=== PATIENT | female | born 1960 | race Caucasian/White ===

== ENCOUNTER 2017-11-20 13:31 | Emergency (ER) | payer OTHER ==
[2017-11-20 13:59] VITALS: BP 140/67; PULSE 89; TEMP 98.6; BMI 23.0
--- NOTE | 2017-11-20 14:25 | PDOC ---
History of Present Illness - General Chief Complaint: Chest Pain Stated Complaint: Nausea Time Seen by Provider: 11/20/17 14:22 - History of Present Illness Initial Comments: 11/20/17 14:23 57 yo F with h/o thyroid ca. s/p resection, hypothyroidism, anxiety, panic attacks, who p/w dizziness. Patient with acute worsening of "spinning sensation " at rest and with movement beginning last night. Symptom onset 2 months ago. Also reports transient episode of lightheadedness, BL tinnitus, and L ear pain. Denies hearing loss. Patient seen by neurology, with negative CTH x 1 week ago. Denies OTC symptom management. Patient denies N/V, F,C, CP, SOB, urinary complaints, abdominal pain, diarrhea, constipation, weakness, sensory changes. PMHx: as noted above. Denies h/o CVA/TIA, PE/DVT. ROS: as noted SHx: Tobacco cessation x 3 years ago. Denies Etoh,IVDA. Allergies: NKDA Past History - Past Medical History Allergies/Adverse Reactions: Allergies Allergy/AdvReac Type Severity Reaction Status Date / Time No Known Drug Allergies Allergy Verified 11/20/17 13:56 Home Medications: Ambulatory Orders Alprazolam [Xanax] 1 mg PO TID 06/30/11 Zolpidem Tartrate [Ambien] 12.5 mg PO HS 06/30/11 Levothyroxine [Synthroid -] 175 mcg PO DAILY 01/26/12 Diphenhydramine [Benadryl *Liquid*] 25 mg PO QID PRN #1 bottle 02/28/16 Loratadine [Claritin -] 10 mg PO DAILY #7 tablet 02/28/16 Meclizine HCl [Antivert -] 12.5 mg PO TID PRN #21 tablet 11/20/17 Anemia: No Asthma: No Cancer: Yes (THYROID) Cardiac Disorders: No CVA: No COPD: No CHF: No Dementia: No Diabetes: No GI Disorders: Yes Disorders: No HTN: No Hypercholesterolemia: No Liver Disease: No Psychiatric Problems: Yes (ANXIETY) Seizures: Yes Thyroid Disease: Yes (CANCER) - Surgical History Abdominal Surgery: No Appendectomy: No Cardiac Surgery: No Cholecystectomy: Yes Lung Surgery: No Neurologic Surgery: No Orthopedic Surgery: No - Reproductive History (#): 1 Para: 1 - Immunization History Immunization Up to Date: Yes - Suicide/Smoking/Psychosocial Hx Smoking Status: No Smoking History: Never smoked Have you smoked in the past 12 months: No Number of Cigarettes Smoked Daily: 0 If you are a former smoker, when did you quit?: 1969 Information on smoking cessation initiated: No Hx Alcohol Use: No Drug/Substance Use Hx: No Substance Use Type: None Hx Substance Use Treatment: No Review of Systems - Review of Systems Comments:: 11/20/17 14:24 GENERAL/CONSTITUTIONAL: No fever or chills. No weakness. HEAD, EYES, EARS, NOSE AND THROAT: + Left ear pain and tinnitus. No discharge. No change in vision. No sore throat. CARDIOVASCULAR: No chest pain or shortness of breath RESPIRATORY: No cough, wheezing, or hemoptysis. GASTROINTESTINAL: No nausea, vomiting, diarrhea or constipation. GENITOURINARY: No dysuria, frequency, or change in urination. MUSCULOSKELETAL: No joint or muscle swelling or pain. No neck or back pain. SKIN: No rash NEUROLOGIC: + Lightheadedness. No headache, vertigo, loss of consciousness, or change in strength/sensation. ENDOCRINE: No increased thirst. No abnormal weight change HEMATOLOGIC/LYMPHATIC: No anemia, easy bleeding, or history of blood clots. ALLERGIC/IMMUNOLOGIC: No hives or skin allergy. *Physical Exam - Vital Signs Last Vital Signs Temp Pulse Resp BP Pulse Ox 98.6 F 89 16 140/67 100 11/20/17 13:56 11/20/17 13:56 11/20/17 13:56 11/20/17 13:56 11/20/17 13:56 - Physical Exam Comments: 11/20/17 14:24 GENERAL: Awake, alert, and fully oriented, in no acute distress HEAD: No signs of trauma, normocephalic, atraumatic EYES: PERRLA, EOMI, sclera anicteric, conjunctiva clear ENT: Auricles normal inspection, hearing grossly normal, nares patent, oropharynx clear without exudates. Moist mucosa NECK: Normal ROM, supple, no lymphadenopathy, JVD, or masses LUNGS: No distress, speaks full sentences, clear to auscultation bilaterally HEART: Regular rate and rhythm, normal S1 and S2, no murmurs, rubs or gallops, peripheral pulses normal and equal bilaterally. EXTREMITIES : Normal inspection, Normal range of motion, no edema. No clubbing or cyanosis. NEUROLOGICAL: Absent Nystagmus on physical exam. Cranial nerves II through XII grossly intact. Normal speech, normal gait, no focal sensorimotor deficits. Neg dysmetria on FTN. Normal TONE. SKIN: Warm, Dry, normal turgor, no rashes or lesions noted ED Treatment Course - LABORATORY CBC & Chemistry Diagram: 11/20/17 16:00 11/20/17 16:00 Medical Decision Making - Medical Decision Making 11/20/17 14:25 57 yo F with h/o thyroid ca. s/p resection, hypothyroidism, anxiety, panic attacks, who p/w dizziness. VSS, AF. Likely vertigo peripheral vs. central. Absent nystagmus. Low suspicion CVA/TIA. Will consider BPPV, AOM, labrynthitis, Menieres dz. Neurologist Daniella. 11/20/17 14:27 ED Course: EKG: NSR with absent AL, STD. Normal interval duration and axis. 11/20/17 15:17 Spoke to medical receptionist medical assistant at Dr. Brewer office ([phone]). Patient had an EEG and MRI brain (10/2017). *DC/Admit/Observation/Transfer Diagnosis at time of Disposition: Vertigo - Discharge Dispostion Disposition: HOME Condition at time of disposition: Stable Decision to Admit order: No - Referrals Referrals: Maria T Astudillo MD [Primary Care Provider] - - Patient Instructions Printed Discharge Instructions: DI for Vertigo Additional Instructions: Please return to the emergency department with any new or worsening symptoms or concerns. Please follow up with your primary care physician within 72 hours. Take Meclizine as needed for vertigo. Can follow up with neurology for vertigo. - Post Discharge Activity - Attestations Physician Attestion: 11/20/17 17:12 I attest to the information provided in this note.
--- NOTE | 2017-11-20 14:26 | PDOC ---
Attending Attestation - Resident Resident Name: Patric Solorzano - ED Attending Attestation I have performed the following: I have examined & evaluated the patient, The case was reviewed & discussed with the resident, I agree w/resident's findings & plan, Exceptions are as noted - HPI HPI: 11/20/17 14:53 57 year old female pmh thyroid cancer s/p resection, anxiety, hypothyroidism, p/ w dizziness x 3 months. Pt reports a "spinning sensation" last night associated with lightheaded and bilateral tinitus and left ear pain. Denies hearing loss. Does not take aspirin. Has been seeing her neurologist, Dr. Brewer and had an MRI scan of her head, and an EEG that was negative (confirmed by Dr. Brewer's office) Pt does not currently taking any medications for this. States that these symptoms are intermittent x 2 months. Worse with movements and turning head. Denies prior strokes or clotting disorders. Denies chest pain (despite nursing triage comment) here. The patient experienced another episode last night so came into the ED. - Physicial Exam PE: 11/20/17 17:18 GENERAL: Awake, alert, and fully oriented, in no acute distress HEAD: No signs of trauma EYES: PERRLA, EOMI, sclera anicteric, conjunctiva clear ENT: Auricles normal inspection, hearing grossly normal, nares patent NECK: Normal ROM, supple LUNGS: Breath sounds equal, clear to auscultation bilaterally. No wheezes, and no crackles HEART: Regular rate and rhythm, normal S1 and S2, no murmurs, rubs or gallops ABDOMEN: Soft, nontender, No guarding, no rebound. No masses EXTREMITIES: Normal range of motion, no edema. No clubbing or cyanosis. No cords, erythema, or tenderness NEUROLOGICAL: Cranial nerves II through XII intact. Normal speech, normal gait. 5/5 strength upper and lower extremities. Sensation intact throughout. No dysmetria, no dysarthria, negative birgit [place]. Heel to clifford normal. Rapid alternating normal. SKIN: Warm, Dry, normal turgor, no rashes or lesions noted. - Medical Decision Making 11/20/17 14:55 Vital Signs Temp Pulse Resp BP Pulse Ox 98.6 F 89 16 140/67 100 11/20/17 13:56 11/20/17 13:56 11/20/17 13:56 11/20/17 13:56 11/20/17 13:56 The patient appears to be having intermittent chronic vertigo. Has had a negative outpatient neuro workup, as well as an ENT workup. At this time, it is unclear what the etiology of her vertigo is. She had a negative MRI of the brain as well. Could this be meniere's or some form of peripheral vertigo? Pt seems to feel better after meclizine. I advised the patient that she may benefit from vestibular physical therapy. I also advised her to follow up with her neurologist and ENT physician. The patient is agreeable with the plan and states she feels comfortable going home. Return precautions given. Heart Score/ECG Review #1 ECG reviewed & interpreted by me at: 14:05 11/20/17 14:26 NSR 77, no std/emily, normal axis, normal intervals, QTC 430 msec
[2017-11-20] MEDS ORDERED: MECLIZINE HCL 25 MG TABLET (FP) PO ONE (14:36)
--- NOTE | 2017-11-20 15:17 | EKG ---
Test Reason : Blood Pressure : / mmHG Vent. Rate : 077 BPM Atrial Rate : 077 BPM P-R Int : 152 ms QRS Dur : 076 ms QT Int : 380 ms P-R-T Axes : 077 021 054 degrees QTc Int : 430 ms NORMAL SINUS RHYTHM POSSIBLE LEFT ATRIAL ENLARGEMENT BORDERLINE ECG WHEN COMPARED WITH ECG OF 26-FEB-2016 18:36, NO SIGNIFICANT CHANGE WAS FOUND Confirmed by STONE GHOTRA MD ([id number]) on 11/20/2017 3:16:35 PM Referred By: Confirmed By:STONE GHOTRA MD
[2017-11-20] MEDS ORDERED: MECLIZINE HCL 25 MG TABLET (FP) ONE (15:46)
[2017-11-20 16:19] LABS: BASO % 0.4 % (0-2.0); EOS % 0.6 % (0-4.5); HEMATOCRIT 39.5 % (32.4-45.2); HEMOGLOBIN 13.3 GM/dL (10.7-15.3); LYMPH % 17.2 % (8-40); MCH 30.7 pg (25.7-33.7); MCHC 33.5 g/dl (32.0-36.0); MEAN CELL VOLUME 91.6 fl (80-96); MEAN PLT VOLUME 8.2 fl (7.5-11.1); MONO % 6.7 % (3.8-10.2); NEUT % 75.1 % (42.8-82.8); PLATELET COUNT 323 K/MM3 (134-434); RBC 4.32 M/mm3 (3.60-5.2); RDW 13.5 % (11.6-15.6); WHITE BLOOD COUNT 6.9 K/mm3 (4.0-10.0)
[2017-11-20 16:33] LABS: URINE APPEARANCE CLEAR; URINE BILIRUBIN NEGATIVE (<2.0 mg/dL); URINE COLOR LTYELLOW; URINE GLUCOSE (UA) NEGATIVE (NEGATIVE); URINE KETONE NEGATIVE (NEGATIVE); URINE LEUK ESTERASE NEGATIVE (NEGATIVE); URINE NITRITE NEGATIVE (NEGATIVE); URINE PROTEIN NEGATIVE (NEGATIVE); URINE UROBILINOGEN NEGATIVE mg/dL (0.2-1.0)
[2017-11-20 16:45] LABS: ANION GAP 4 (8-16); BLOOD UREA NITROGEN 11 mg/dL (7-18); CALCIUM 9.1 mg/dL (8.5-10.1); CHLORIDE 104 mmol/L (98-107); CO2 32 mmol/L (21-32); CREATININE 0.8 mg/dL (0.55-1.02); GLUCOSE,RANDOM 127 mg/dL (74-106); POTASSIUM 4.2 mmol/L (3.5-5.1); SGOT/AST 17 U/L (15-37); SGPT/ALT 29 U/L (12-78); SODIUM 140 mmol/L (136-145)
[2017-11-20 16:46] LABS: ALK PHOS 69 U/L (45-117); BILIRUBIN,TOTAL 1.3 mg/dL (0.2-1.0); TOT PROT 7.6 g/dl (6.4-8.2)
== END 2017-11-20 17:47 | disposition home or self-care (01) ==
LOC: JER 13:31
DX: R42 Dizziness and giddiness (principal); E03.9 Hypothyroidism, unspecified; F41.9 Anxiety disorder, unspecified; F41.0 Panic disorder [episodic paroxysmal anxiety]; Z85.850 Personal history of malignant neoplasm of thyroid
CPT/HCPCS: 36415; 80053; 81003; 82550; 84484; 85025; 93005; 93010; 99283-25